=== PATIENT | male | born 1955 | race Caucasian/White ===

== ENCOUNTER 2022-08-28 17:41 | Emergency (ER) | payer OTHER ==
[2022-08-28] MEDS ORDERED: DIPHTH,PERTUSS(ACELL),TET VAC 0.5 ML VIAL (Tdap) I.M. ONE (18:00)
[2022-08-28] MEDS ORDERED: LIDOCAINE 2%, 20 ML MDV INJ ONE (18:00)
[2022-08-28] MEDS ORDERED: IBUPROFEN 600 MG TABLET PO ONE (18:00)
[2022-08-28 18:25] VITALS: BP_SYST 109
[2022-08-28] MEDS ORDERED: NEOM28.36 TP (18:45)
[2022-08-28] MEDS ORDERED: PENI250T2 PO (18:45)
--- NOTE | 2022-08-28 18:59 | NUR ---
Patient given written and verbal discharge instructions and verbalizes understanding. ER MD discussed with patient the results and treatment provided. Patient in stable condition. ID arm band removed. Rx of given. Patient educated on pain management and to follow up with PMD. Pain Scale 0. Opportunity for questions provided and answered. Medication side effect fact sheet provided.
[2022-08-28 19:10] VITALS: BP_SYST 133
== END 2022-08-28 18:57 | disposition home or self-care (01) ==
LOC: SED 17:41
DX: S01.81XA Laceration without foreign body of other part of head, initial encounter (principal); S01.511A Laceration without foreign body of lip, initial encounter; Z79.899 Other long term (current) drug therapy; W01.0XXA Fall on same level from slipping, tripping and stumbling without subsequent striking against object, initial encounter; Y93.89 Activity, other specified; Y92.89 Other specified places as the place of occurrence of the external cause; Y99.8 Other external cause status
CPT/HCPCS: 99283; 90715; 90471; 12013; J2001

== ENCOUNTER 2022-09-25 07:43 | Emergency (ER) | payer OTHER ==
[~2022-09-25] VITALS: Ht 172.7 cm; Wt 97.5 kg
[2022-09-25 07:43] VITALS: BP_SYST 119
[~2022-09-25 07:43] MED LIST: NEOM28.36 TP; PENI250T2 PO
--- NOTE | 2022-09-25 07:48 | NUR ---
PT BROUGHT BACK TO BED #3 AND TRIAGED. WILL ASSUME CARE
--- NOTE | 2022-09-25 07:49 | NUR ---
DR BLUE AT BEDSIDE FOR EVALUATION
--- NOTE | 2022-09-25 07:50 | NUR ---
PT STATES THAT HE FELL ON 08/28 AND WAS SEEN HERE RECEIVED STITCHES TO FOREHEAD, TODAY ARRIVES WITH PAIN TO LEFT KNEE, GETTING WORSE IN LAST 1 1/2 WEEKS. ABLE TO AMBULATE WITH STEADY GAIT.
--- NOTE | 2022-09-25 08:16 | NUR ---
XRAYS BEING DONE AT BEDSIDE. PT TOLERATING IT WELL.
--- NOTE | 2022-09-25 08:27 | NUR ---
REPORT GIVEN TO ANITA, ANITA WILL ASSUME CARE
[2022-09-25] MEDS ORDERED: NAPR-690 PO (08:30)
--- NOTE | 2022-09-25 08:34 | NUR ---
Patient given written and verbal discharge instructions and verbalizes understanding. ER MD discussed with patient the results and treatment provided. Patient in stable condition. ID arm band removed. Rx of naproxyn given. Patient educated on pain management and to follow up with PMD. Pain Scale . Opportunity for questions provided and answered. Medication side effect fact sheet provided.
[2022-09-25 08:35] VITALS: BP_SYST 119
== END 2022-09-25 08:34 | disposition home or self-care (01) ==
LOC: SED 07:43
DX: S83.92XA Sprain of unspecified site of left knee, initial encounter (principal); Z79.899 Other long term (current) drug therapy; W19.XXXA Unspecified fall, initial encounter; Y93.89 Activity, other specified; Y92.89 Other specified places as the place of occurrence of the external cause; Y99.8 Other external cause status
CPT/HCPCS: 73560-TC; 99283